=== PATIENT | male | born 1975 | race Caucasian/White ===

== ENCOUNTER → 2021-11-21 15:13 | Outpatient (BNVA) | payer MEDICARE, MEDICAID, SELFPAY | PROVIDERS: PCP Internal Medicine; Visit Provider Nurse Practitioner | DX: Z01.818 Encounter for other preprocedural examination (principal) | CPT/HCPCS: 99202 ==

== ENCOUNTER 2021-12-01 11:52 | Outpatient (REF) | payer MEDICARE, MEDICAID, SELFPAY ==
--- NOTE | ~2021-12-01 | XR_ITS ---
EXAMINATION: XR FINGER, LEFT CLINICAL INFORMATION: Autistic with pain in left fingers COMPARISON: None TECHNIQUE: 2 views of the left thumb. FINDINGS: The bones and soft tissues are unremarkable. No fracture. Alignment is anatomic. Joint spaces are maintained. XR/XR finger LT min 2V IMPRESSION: Normal finger radiographs.
== END 2021-12-01 11:53 | disposition home or self-care (01) ==
LOC: HO.HMGCX 11:52
PROVIDERS: PCP Internal Medicine; Visit Provider Internal Medicine
DX: M79.645 Pain in left finger(s) (principal); M79.89 Other specified soft tissue disorders
CPT/HCPCS: 73140

== ENCOUNTER → 2022-01-04 14:12 | Outpatient (BNVA) | payer MEDICARE, MEDICAID, SELFPAY | PROVIDERS: PCP Internal Medicine; Visit Provider Nurse Practitioner | DX: Z12.11 Encounter for screening for malignant neoplasm of colon (principal) | CPT/HCPCS: 99212 ==

== ENCOUNTER 2022-05-02 10:33 | Outpatient (REF) | payer MEDICARE, MEDICAID, SELFPAY | END 2022-05-02 10:34 | disposition home or self-care (01) | LOC: HO.SH 10:33 | PROVIDERS: Visit Provider Internal Medicine | DX: Z01.118 Encounter for examination of ears and hearing with other abnormal findings (principal); H93.293 Other abnormal auditory perceptions, bilateral | CPT/HCPCS: 92567; 92579 ==

== ENCOUNTER 2023-04-24 08:56 | Outpatient (AMB) | payer MEDICARE, MEDICAID, SELFPAY ==
--- NOTE | 2023-04-24 09:12 | AM.OFFVISNUR ---
Intake Intake Visit Reasons: Flu Shot Allergies phenobarbital [Phenobarbital] Allergy (Unknown, Verified 09/01/22 10:15) UNKNOWN phenytoin [Dilantin] Allergy (Unknown, Verified 09/01/22 10:15) Unknown From Dilantin Allergy (Unknown, Uncoded 09/01/22 10:15) UNKNOWN Office Procedures Flu Questionnaire Does the patient have a severe egg allergy?: No Does the patient have severe life threatening allergies?: No Does the patient have a fever or illness today?: No Has the patient ever had Guillain-[place] Syndrome?: No Has the patient ever had any past reaction to a flu shot?: No Immunizations flu vacc [id number] 6mos up(PF) 60 mcg(15 mcgx4)/0.5 mL IM syringe Performing Provider: Kasi Perez MD [facility] Administered by: Brit Campa RN on 04/24/23 09:12 Dose Route Admin Location Dispensed Lot Number Expiration Date NDC Torch Shearer 0.5 mL IM Right Deltoid 0.5 mL [id number] 12/16/23 [id number] VIS Given Date VIS Provided VIS Publication Date 04/24/23 Single Vaccine 21 Eligibility Eligibility Date Funding Source Not [facility] Eligible 04/24/23 Private Coding Assessment & Plan Assessment & Plan Orders: Orders Influenza [id number] Immunization Today Z23 - Encounter for immunization
== END 2023-04-24 09:15 | disposition home or self-care (01) ==
PROVIDERS: PCP Internal Medicine; Visit Provider Internal Medicine
DX: Z23 Encounter for immunization (principal)
CPT/HCPCS: 90471; 90686

== ENCOUNTER 2023-05-09 12:33 | Outpatient (RCR) | payer MEDICARE, MEDICAID, SELFPAY ==
--- NOTE | 2023-06-01 13:19 | MHC.SP.ADU ---
Referring provider: Kasi Perez MD Reason for Referral: Speech and Language Evaluation Type of Treatment: 42796 Evaluation Speech Sound Production WITH Language Date of Plan of Treatment: 05/09/23 Onset of Symptoms/Illness: 74 Date Treatment Started: 05/09/23 Medical Diagnosis: F84.0 Autism Primary Speech Language Diagnosis: F80.2 Mixed receptive-expressive language disorder History Mr. Angulo is an amiable, bilingual, autistic 47-year-old man who presented with his caregiver, Jimmy, for a language evaluation to explore Alternative and Augmentative Communication (AAC) options. Jimmy reports that Mr. Angulo understands Jamaican and Nepalese verbal communication and primarily uses gestures to express his wants and needs. Jimmy reports that he is concerned about Mr. Angulo?s communication skills because he does not always indicate when something is wrong. For example, Mr. Angulo was experiencing back pain that was not known to his caregivers until they discovered it through body checks, which have now become routine. Mr. Angulo lives in a halfway and receives assistance from caregivers to complete activities of daily living (ADLs). He visits his biological family three times per week for four hours, where Nepalese is spoken. Jimmy reports that both Mr. Angulo?s caregivers at the halfway and his family are interested in obtaining an AAC device for him. Mr. Angulo spends most days following a familiar routine and enjoys using his iPad to watch videos and play games. Jimmy reports that Mr. Angulo follows multiple-step directions (e.g. put your socks on, then put on your shoes) and responds to cloze questions (e.g. do you want to have pizza or chicken?). In addition, Mr. Angulo uses several gestures to communicate his needs, including help, more, shower, and food. To refuse an item, Mr. Angulo will push it away and to indicate needing the bathroom, he gets up from where he is sitting. Jimmy reports that Mr. Angulo experiences anxiety, especially in clinical settings like a doctor?s office, and takes fluoxetine, an antidepressant, to treat it. Mr. Angulo also has gastrointestinal difficulties and acid reflux for which he takes vitamins and a fiber supplement. Social History: Employment Status: Unemployed Current Living Situation: Senior Care Tests of Speech & Lang Adults: Clinical Impression: Impaired Observations: AAC Dynamic Assessment Mr. Angulo?s ability to communicate using a low-tech AAC device was evaluated during a dynamic assessment. Several low-tech manual AAC boards were presented to Mr. Angulo, representing TouchChat?, [id number], and clinician-made systems. Throughout the assessment, Mr. Angulo was provided with communication models from the clinician using both verbal and manual AAC modalities. While Mr. Angulo did not consistently point to the same icon as the clinician, he demonstrated adequate fine motor control to use the manual board by pointing to a variety of icons, approximately 1 inch X 1 inch, following the clinician?s model. This is a positive indicator of both Mr. Angulo?s capacity to learn and his potential to utilize AAC devices to expand his communicative ability. Receptive Communication The Receptive One-Word Picture Vocabulary Test?4 th Edition: Nepalese-Bilingual Edition (ROWPVT-4: SBE) is a standardized assessment used to evaluate receptive language skills in Nepalese-Jamaican speaking bilingual individuals aged 2;0-70+. The test measures a person?s ability to match a spoken word?in either Nepalese or Jamaican?to an image of an object, action or concept represented in a color illustration ([employer], 2013). Mr. Angulo was not responsive to the tasks of the ROWPVT-4:SBE. Testing discontinued after Mr. Angulo did not respond to multiple trials in both Jamaican and Nepalese of the four example items (hombre/man, mu?eca/doll, c?rculo/[place], excavaci?n/digging). Jimmy expressed surprise at Mr. Cernas performance and reported that at home, he consistently follows 2-step instructions, points to what he wants, and demonstrates understanding of a variety of words (e.g. colors, clothing, foods). Mr. Cernas performance on the ROWPVT-4: SBE is not likely circulation sales representative of his receptive language skills. His unresponsiveness could be due to a lack of familiarity of the task of pointing to pictures or a result of his anxiety in an unfamiliar, clinical setting with unfamiliar communication partners. Reading Mr. Cernas reading ability was probed through presentation of a picture book. He demonstrated capacity to follow the story as the clinician read aloud and accurately pointed to pictures in the book when asked by the clinician (e.g. Show me the dog). While Mr. Angulo did not exhibit reading ability, he showed good receptive language skills by pointing to the appropriate picture. This is consistent with Jimmy?s report of Mr. Angulo?s receptive language capabilities. Mr. Angulo?s responsiveness to a visual modality (i.e. book) suggests a good prognosis for his ability to communicate with AAC. Word Forming Mr. Angulo?s capacity to put letters together to form words was examined during unstructured play with Bananagrams tiles. The clinician modeled forming words by putting letter tiles together. Mr. Angulo did not form words but built structures and designs with the tiles. While this could be seen as evidence that Mr. Angulo does not have the capacity to form words, it could also be indicative of inappropriate materials (letter tiles) or setting (clinical) that were not conducive to Mr. Angulo completing this task. Impressions and Recommendations Summary: Impact on Daily Function/Activity Limitations: Daily Activities: Severe Interpersonal Interactions: Severe Education: Employment: Community: Severe Prognosis for Improvement: Good Comment: Impressions Mr. Angulo presents with a severe verbal expressive communication disorder affecting his ability to meet his wants and needs, make refusals, and interact with others. Mr. Angulo?s expressive communication challenges have a direct impact on his day-to-day life by making it difficult to indicate when he is hurt, as when he did not communicate back pain he was experiencing, and by limiting the social interactions he is able to have with others. In addition, Mr. Angulo?s limited expressive abilities prevent him from making refusals or protests, a basic human right. During this evaluation, Mr. Angulo exhibited fine motor skills and responsiveness to visual modalities, which indicate that he will respond positively to a high-tech AAC device. A comprehensive understanding of Mr. Angulo?s receptive communication abilities was not obtained due to his unresponsiveness to the standardized assessment. Recommendations It is recommended Mr. Angulo receive outpatient speech therapy for 6 weeks to address expressive communication challenges, further explore AAC modalities, and continue assessment of communicative ability. It is also recommended Mr. Angulo receive a consultation with an AAC specialist to determine his eligibility for a high-tech AAC device. Recommendation for Speech Therapy: Outpatient Speech Therapy Frequency/Duration: 1x weekly x 6 weeks Date Range for Service Requested: Time to Reassess: 3 months Restaurant Managing Partner Goals: LTG 1: Mr. Angulo will participate in diagnostic treatment to further inform therapy treatment goals. LTG 2: Mr. Angulo will demonstrate capacity to use Augmentative and Alternative Communication by using a manual board to express his wants, needs and to make refusals. Short Term Goals: Goal # : 1.1: Mr. Angulo will complete the Receptive One-Word Picture Vocabulary Test?4th Edition: Nepalese-Bilingual Edition (ROWPVT-4: SBE) to gain more information about his receptive communication skills. Goal Status: New Goal Goal# : 2.1: Mr. Angulo will make 1-word utterances to express preferences and needs by pointing to the appropriate icon in 70% of opportunities across three sessions with moderate assistance (3-4 models). Goal Status: New Goal Goal # : 2.2: Mr. Angulo will refuse an undesired activity or task by pointing to the appropriate icon in 70% of opportunities across three sessions with moderate assistance (3-4 models). Goal Status: New Goal Recommended Referrals to be Discussed with Primary Care Provider: Other: See Comment Recommended Referrals to be Discussed with Primary Care Provider: AAC Specialist Landscape And Yardwork Laborer Clinican/Clinical Fellow: Yes: Maryana Garibay Supervisory Statement: Yes Speech Language Pathologist: Jazzy Harris M.A., CCC-SHANK STITCHER
== END 2023-06-04 14:31 | disposition still patient (30) ==
LOC: HO.SH 12:33
PROVIDERS: Visit Provider Internal Medicine
DX: F84.0 Autistic disorder (principal)
CPT/HCPCS: 92523

== ENCOUNTER 2023-09-04 11:22 | Outpatient (AMB) | payer MEDICARE, MEDICAID, SELFPAY ==
--- NOTE | 2023-09-04 11:22 | MHC.PC.OV ---
Vital Signs 09/04/23 11:23 Height 5 ft 7 in Weight 176 lb BMI 27.6 BP 122/60 Blood Pressure Location Lt brachial Position Sitting Pulse 73 Pulse Source Pulse Oximeter Pulse Oximetry (%) 100 Oxygen Delivery Method Room Air Intake Visit Reasons: pe Intake Note: Patient is here today for a physical. Internal Audit Senior Manager Required: No Allergies phenobarbital [Phenobarbital] Allergy (Unknown, Verified 09/04/23 11:23) UNKNOWN phenytoin [Dilantin] Allergy (Unknown, Verified 09/04/23 11:23) Unknown From Dilantin Allergy (Unknown, Uncoded 09/04/23 11:23) UNKNOWN Medication List - Last Reconciled 09/04/23 by Kasi Perez MD acetaminophen (Tylenol) 325 mg PO QID PRN calcium carbonate (Tums Ultra) 400 mg PO DAILY 90 days cholecalciferol (vitamin D3) (Vitamin D3) 2,000 units PO QAM dextromethorphan-guaifenesin 10-200 mg (Robitussin Cough-Chest Congestion DM) 1 tab-cap PO Q8H PRN diazepam 20 mg (2 x 10 mg) PO DAILY PRN fluoxetine (Prozac) 20 mg PO DAILY lorazepam 1 mg PO One are prior to lab appointments; magnesium hydroxide (Milk of Magnesia) 2,400 mg (30 mL) PO BEDTIME PRN omeprazole 20 mg PO DAILY peg 3350-electrolytes 236-22.74-6.74 -5.86 gram (Golytely) 240 mL PO Q10M 1 day sennosides-docusate sodium 8.6-50 mg (Senna-S) 1 tab-cap PO BEDTIME [SPEECH TEACHING TABLET As directed] Tobacco use date assessed: 09/04/23 Dental Screening Dental Screen Date: 09/04/23 Did you have a dental visit in the last 12 months?: Yes Did you have a dental problem in the last 6 months where you did not have access to dental care?: No Was dental information given to patient?: Patient has dentist HPI pe HPI Details 47-year-old overweight male with autism, mental behavior problem GERD coming in for physical exam last seen in August 2022 and blood work was requested. Patient has had Cologuard test April 2022. PAtient is non verbal and advised to have a speech decive to help him express his thoughts [facility] Medical History (Updated 07/09/23 @ 13:13 by Kasi Perez MD) Constipation Lens opacity Bruxism Lumbar spondylosis GERD (gastroesophageal reflux disease) Vitamin D deficiency Autism Surgical History No pertinent past surgical history Family History Father No problems noted. Mother No problems noted. Other Mental health disorder Social History Housing: Other Housing Other:: Detention Alcohol intake: never Patient Tobacco Use Status: Never used Tobacco e-Cigarette/Vaping Use: Never Used Second Hand Smoke Exposure: No service: No Current occupational status: disabled Cognitive needs: No Hearing needs: No Vision needs: No Questionnaire PHQ-9 Over the last 2 weeks, how often have you been bothered by any of the following problems? 1. Little interest or pleasure in doing things: not at all 2. Feeling down, depressed, or hopeless: not at all 3. Trouble falling or staying asleep, or sleeping too much: not at all 4. Feeling tired or having little energy: not at all 5. Poor appetite or overeating: not at all 6. Feeling bad about yourself - or that you are a failure or have let yourself or your family down: not at all 7. Trouble concentrating on things, such as reading the newspaper or watching television: not at all 8. Moving or speaking so slowly that other people could have noticed. Or the opposite - being so fidgety or restless that you have been moving around a lot more than usual: not at all 9. Thoughts that you would be better off or of hurting yourself in some way: not at all Total score: 0 Depression Screening Interpretation: Negative Depression Screening Done: Yes Source: Developed by Drs. Fidel Shine, Eufemia Gonzalez, Fawad Montelongo and colleagues, with an educational marielena from [employer] Thrive Questionnaire Date Thrive assessed: 09/04/23 I am a: Patient What is your living situation today?: I have a steady place to live Within the past 12 months, did the food you bought not last and you didn't have the money to get more?: Never true Within the past 12 months, did you worry whether your food would run out before you got money to buy more?: Never true Do you have trouble paying for medicines?: No Do you have trouble getting transportation to medical appointments?: No Do you have trouble paying your heating and electricity bill?: No Do you have trouble taking care of your child, family member or friend?: No Do you have trouble with day-to-day activities such as bathing, preparing meals, shopping, managing finances, etc.?: No Are you currently unemployed and looking for a job?: No Are you interested in more education?: No Please select the resources that you would like help with: None THRIVE Score: 0 AUDIT C Alcohol Use Questionnaire (AUDIT-C) 1. How often do you have a drink containing alcohol?: Never 3. How often do you have six or more drinks on one occasion?: Never Total Score: 0 JAVIER-7 AMB Questionnaire JAVIER-7 Date JAVIER - 7 assessed: 09/04/23 Feeling nervous, anxious, or on edge: 0 = Not at all Not being able to stop or control worryin = Not at all Worrying too much about different things: 0 = Not at all Trouble relaxin = Not at all Being so restless that it is hard to sit still: 0 = Not at all Becoming easily annoyed or irritable: 0 = Not at all Feeling afraid as if something awful might happen: 0 = Not at all Total JAVIER-7 score (0-4 normal; 5-9 mild; 10-14 moderate; 15-21 severe): 0 Source: Developed by Drs. Fidel Shine, Eufemia Gonzalez, Fawad Montelongo and colleagues, with an educational marielena from [employer] Review of Systems Const Denies poor appetite and Denies weakness Eyes Denies no additional complaints ENT Reports Normal hearing present, Denies dizziness, Denies nasal congestion, Denies tinnitus and Denies sore throat Card Denies chest pain, Denies syncope, Denies rapid heart rate and Denies dyspnea Resp Denies cough and Denies dyspnea GI Denies change in stool character, Reports constipation, Denies diarrhea, Denies nausea and Denies vomiting Denies dysuria and Denies urinary frequency Neuro Reports Normal hearing present, Denies confusion, Denies dizziness, Denies syncope and Denies weakness Psych Denies confusion Physical exam (Primary Care) Vital Signs: Last Vital Signs Pulse 73 09/04/23 11:23 BP 122/60 09/04/23 11:23 Pulse Ox 100 09/04/23 11:23 Oxygen Delivery Method Room Air 09/04/23 11:23 BMI result Body Mass Index 27.6 Tobacco/Smoking Status: Tobacco use Status Tobacco use date assessed 09/04/23 09/04/23 11:25 Patient Tobacco Use Status Never used Tobacco 09/04/23 11:25 e-Cigarette/Vaping Use Never Used 09/04/23 11:25 PHQ-9: PHQ-9 Score PHQ-9: Total score 0 09/04/23 11:25 Depression Screening Interpretation: Negative Thrive Assessment: Date of Thrive Assessment Date Thrive assessed 09/04/23 09/04/23 11:25 Const General: No confusion Orientation/consciousness: No confusion HENMT Head: Yes normocephalic Ears: external ears normal and TM's normal bilaterally Face and sinus: Yes normal facial exam Mouth: moist mucous membranes Throat: Yes tonsils normal Eyes Conjunctivae: conjunctivae normal Pupils: Equal, round and reactive pupils present and Pupil accommodation reflex normal Direct Ophthalmoscopy: normal light reflex Neck Neck: No lymphadenopathy Thyroid: Thyroid normal Chest Chest palpation & inspection: normal inspection of the chest Resp Effort & Inspection: normal respiratory effort and no audible wheezes Auscultation: clear to auscultation bilaterally, no crackles, no wheezes and lung sounds not diminished Cardio Rate: regular rate Rhythm: regular rhythm Peripheral pulses: radial pulses present and dorsalis pedis present GI Palpation (GI): no masses Auscultation: normal bowel sounds and normoactive bowel sounds Rectal Exam - Male: Yes deferred Skin General skin exam: no rashes or lesions noted Rashes: no rashes Neuro General: No confusion Cranial nerves: Yes Equal, round and reactive pupils present and Yes Normal hearing present Cognition (Neuro): normal cognition Gait exam (Neuro): Normal gait present Motor exam (neuro): 5/5 motor strength present throughout Deep tendon reflexes (DTR's): Right brachioradialis reflex intensity grade: 2+, Left brachioradialis reflex intensity grade: 2+, Right patellar reflex intensity grade: 2+ and Left patellar reflex intensity grade: 2+ Extrem General: No edema Assessment and Plan Assessment & Plan (1) Autism: Code(s): F84.0 - Autistic disorder Plan: Continue to follow-up with psychiatry and medications. with patient non verbal, advised to have a speech device to better express himself and better communication (2) GERD (gastroesophageal reflux disease): Code(s): K21.9 - Gastro-esophageal reflux disease without esophagitis Qualifiers: Esophagitis presence: without esophagitis Qualified Code(s): K21.9 - Gastro-esophageal reflux disease without esophagitis Plan: Avoid the foods that causes that usually spicy foods, tomato products, juices, coffee, soda and foods that your sensitive to. After eating do not lie down, allow 3-4 hours before in lie down. And keep the head of bed above 30 degrees to avoid the acid from going up. (3) Overweight (BMI 25.0-29.9): Code(s): E66.3 - Overweight Plan: Diet and exercise (4) Annual physical exam: Code(s): Z00.00 - Encounter for general adult medical examination without abnormal findings Orders: Orders Complete Blood Count Auto Diff Today F84.0 - Autistic disorder Free T4 (Free Thyroxine) Today F84.0 - Autistic disorder Lipid Panel Today E78.00 - Pure hypercholesterolemia, unspecified, F84.0 - Autistic disorder Vitamin B12 and Folate Today F84.0 - Autistic disorder Comprehensive Met. Panel Today F84.0 - Autistic disorder Thyroid Stimulating Hormone Today F84.0 - Autistic disorder Coding Level of Care Code Est Pt Prev Care 40-64y([id number]) Diagnoses Autism F84.0 Gastroesophageal reflux disease without esophagitis K21.9 Esophagitis presence: without esophagitis Overweight (BMI 25.0-29.9) E66.3 Annual physical exam Z00.00
[2023-09-04 11:23] VITALS: BP 122/60; PULSE 73; O2SAT 100; BMI 27.6
== END 2023-09-04 12:39 | disposition home or self-care (01) ==
PROVIDERS: Visit Provider Internal Medicine
DX: Z00.00 Encounter for general adult medical examination without abnormal findings (principal); F84.0 Autistic disorder; K21.9 Gastro-esophageal reflux disease without esophagitis; E55.9 Vitamin D deficiency, unspecified
CPT/HCPCS: 99396

== ENCOUNTER 2023-10-15 10:00 | Outpatient (RCR) | payer MEDICARE, MEDICAID, SELFPAY ==
--- NOTE | 2023-09-07 12:27 | MHC.SPEECHCO ---
Addendum entered and electronically signed by MERARY Ngo 03/07/24 17:01: Following this note recommending a break from outpatient speech therapy on 09/07/2023, Rosendo received approval of a permanent AAC device. Rosendo was seen for 3 additional outpatient speech therapy sessions to help support this process including additional editing and communication partner education to support device use. Speech therapy was ultimately discontinued following these 3 visits due to heightened anxiety and lessened participation during speech therapy sessions. Rosendo is currently discharged from 1-1 outpatient speech therapy, but should he seek further services to support overall communication and AAC use, it is recommended for him to be re-referred. Original Note: Rosendo Angulo began 1-1 outpatient speech therapy at [facility] on 06/08/2023. During this time the Speech-Language Pathologist has worked with members of the halfway staff to create individualized lite tech augmentative and alternative communication (AAC) picture cards and communication boards. Rosendo has seen overall improvement with use of lite tech AAC picture cards and signing to support communication in the clinic. Rosendo will sign yes, no, finished, more and help. At times, he signs intermittently and other times he requires moderate visual and verbal support, such as multiple choice options or a clinician model. It is reported that he is using sign at the halfway more frequently as well. The staff is using the individualized lite tech AAC in the halfway, however Rosendo is reportedly less engaged with this than he is with sign. At this time, the Speech-Language Pathologist has submitted an application for Rosendo to obtain a high tech speech generating AAC device. He has been introduced to high tech AAC program [id number] during the past three sessions. He has demonstrated the ability to select target icons with various grid sizes, having the greatest success with 36 icons or less. He has shown the ability to select target icons with approximately 50% accuracy. Over the past few weeks Rosendo has been demonstrating heightened anxiety and less engagement in speech therapy sessions. Rosendo has been pushing away AAC icons, toys, and games almost immediately. It is recommended that Rosendo take a break from speech therapy until his AAC device is approved and arrives to allow for future speech therapy sessions to be a more functional application of communication to best support him. His current goals are included below with their current status. Goals: LTG 1: Mr. Angulo will participate in diagnostic treatment to further inform therapy treatment goals. 1.1: Mr. Angulo will complete the Receptive One-Word Picture Vocabulary Test?4th Edition: Tajik-Bilingual Edition (ROWPVT-4: SBE) to gain more information about his receptive communication skills. NOT MET LTG 2: Mr. Angulo will demonstrate capacity to use Augmentative and Alternative Communication by using a manual board to express his wants, needs and to make refusals. 2.1: Mr. Angulo will make 1-word utterances to express preferences and needs by pointing to the appropriate icon in 70% of opportunities across three sessions with moderate assistance (3-4 models). MET (lite tech AAC) 2.2: Mr. Angulo will refuse an undesired activity or task by pointing to the appropriate icon in 70% of opportunities across three sessions with moderate assistance (3-4 models). NOT MET It has been a pleasure working with Rosendo. Do not hesitate to reach out if you have any questions about Rosendo in regards to speech therapy.
--- NOTE | 2024-03-07 16:58 | MHC.SL.SOA ---
Referring Provider: Kasi Perez MD Reason for Referral: Speech and Language Evaluation Date of Plan of Treatment:05/09/23 Onset of Symptoms/Illness:73 Date Treatment Started:05/09/23 Medical Diagnosis:ASD Primary Speech Language Diagnosis:F84.0 Autistic disorder Secondary Speech Language Diagnosis:F80.2 Mixed receptive-expressive language disorder Number of Authorized Visits Remaining: Reason for Visit:04262 Individual Treatment 10/15/23 Other: Discharge Note Subjective:Mr. Angulo is an amiable, bilingual, autistic 47-year-old man who presented with his caregiver, Jimmy, for a language evaluation to explore Alternative and Augmentative Communication (AAC) options. Jimmy reports that Mr. Angulo understands Dutch and [place]an verbal communication and primarily uses gestures to express his wants and needs. Jimmy reports that he is concerned about Mr. Angulo?s communication skills because he does not always indicate when something is wrong. For example, Mr. Angulo was experiencing back pain that was not known to his caregivers until they discovered it through body checks, which have now become routine. [facility] and receives assistance from caregivers to complete activities of daily living (ADLs). He visits his biological family three times per week for four hours, where [place]an is spoken. Jimmy reports that both Mr. Angulo?s caregivers at the jail and his family are interested in obtaining an AAC device for him. Mr. Angulo spends most days following a familiar routine and enjoys using his iPad to watch videos and play games. Jimmy reports that Mr. Angulo follows multiple-step directions (e.g. put your socks on, then put on your shoes) and responds to cloze questions (e.g. do you want to have pizza or chicken?). In addition, Mr. Angulo uses several gestures to communicate his needs, including help, more, shower, and food. To refuse an item, Mr. Angulo will push it away and to indicate needing the bathroom, he gets up from where he is sitting. Jimmy reports that Mr. Angulo experiences anxiety, especially in clinical settings like a doctor?s office, and takes fluoxetine, an antidepressant, to treat it. Mr. Angulo also has gastrointestinal difficulties and acid reflux for which he takes vitamins and a fiber supplement. Kimberly arrived on time today's session accompanied by jail staff, Merissa. Objective: Today's session was focused on editing and educating staff on AAC. Assessment:[facility] staff filled out surveys on AAC knowledge, and the majority of staff appears to feel comfortable and/or have some knowledge regarding AAC. Per jail staff, Rosendo does initiate some communication via AAC. [facility] staff continues to model AAC use w/ Christine. Notes: Next session is scheduled for Sunday10/29/23 at 10am. Plan to add goals: expand expressive vocab, yes/no reliability, communicating emotions/feelings, communicate when not feeling well (i.e. head hurts), ID body parts, communicate needs (more specific?), increase spontaneity of communication, staff education on modeling and increasing spontaneous utterances. Plan: Goal # : 1.1: Mr. Angulo will complete the Receptive One-Word Picture Vocabulary Test?4th Edition: [place]an-Bilingual Edition (ROWPVT-4: SBE) to gain more information about his receptive communication skills. Status of Goal: Goal Continued Goal # : 2.1: Mr. Angulo will make 1-word utterances to express preferences and needs by pointing to the appropriate icon in 70% of opportunities across three sessions with moderate assistance (3-4 models). Status of Goal: Goal Continued Goal # : 2.2: Mr. Angulo will refuse an undesired activity or task by pointing to the appropriate icon in 70% of opportunities across three sessions with moderate assistance (3-4 models). Status of Goal: Goal Continued Goal # : Status of Goal: Seen by: Graduate/Clinical Fellow: No Supervisory Statement: f_Reg Query Last Value , MHC.AU.SIGNATUR Speech Language Pathologist: Bobbi Butt M.A., CCC-DISTRIBUTOR OF DIRECTORIES
== END 2024-03-10 10:02 | disposition home or self-care (01) ==
LOC: HO.SH 10:00
PROVIDERS: Visit Provider Internal Medicine
DX: F84.0 Autistic disorder (principal); F80.2 Mixed receptive-expressive language disorder
CPT/HCPCS: 92507

== ENCOUNTER 2024-09-08 10:45 | Outpatient (AMB) | payer MEDICARE, MEDICAID, SELFPAY ==
--- NOTE | 2024-09-08 11:19 | AM.OFFVISMDC ---
Intake Vital Signs 09/08/24 11:20 Height 5 ft 7 in Weight 184 lb BMI 28.8 BP 100/66 Blood Pressure Location Lt brachial Position Sitting Pulse 68 Pulse Source Pulse Oximeter Pulse Oximetry (%) 95 Oxygen Delivery Method Room Air Intake Visit Reasons: AWV Environmental Sampler Required: No Kindergarten Instructional Assistant: Kindergarten Instructional Assistant Present Accompanied by: program staff Allergies phenobarbital [Phenobarbital] Allergy (Unknown, Verified 09/08/24 11:29) UNKNOWN phenytoin [Dilantin] Allergy (Unknown, Verified 09/08/24 11:29) Unknown From Dilantin Allergy (Unknown, Uncoded 09/08/24 11:29) UNKNOWN Medication List - Last Reconciled 09/08/24 by Kasi Perez MD acetaminophen 325 mg PO QID PRN calcium carbonate (Tums Ultra) 400 mg PO DAILY 90 days cholecalciferol (vitamin D3) (Vitamin D3) 2,000 units PO QAM dextromethorphan-guaifenesin 10-200 mg (Robitussin Cough-Chest Congestion DM) 1 tab-cap PO Q8H PRN diazepam 20 mg (2 x 10 mg) PO DAILY PRN fluoxetine (Prozac) 20 mg PO DAILY lorazepam 1 mg PO One are prior to lab appointments; magnesium hydroxide (Milk of Magnesia) 2,400 mg (30 mL) PO BEDTIME PRN omeprazole 20 mg PO DAILY sennosides-docusate sodium 8.6-50 mg (Senna-S) 1 tab-cap PO BEDTIME [SPEECH TEACHING TABLET As directed] trazodone 50 mg PO BEDTIME PFSH Medical History (Updated 09/08/24 @ 12:16 by Kasi Perez MD) Constipation Lens opacity Bruxism Lumbar spondylosis GERD (gastroesophageal reflux disease) Vitamin D deficiency Autism Surgical History No pertinent past surgical history Family History Father No problems noted. Mother No problems noted. Other Mental health disorder Social History Housing: Other Housing Other:: Shelter Alcohol intake: never Patient Tobacco Use Status: Never used Tobacco e-Cigarette/Vaping Use: Never Used Second Hand Smoke Exposure: No service: No Current occupational status: disabled Cognitive needs: No Hearing needs: No Vision needs: No Questionnaire Medicare Wellness Checkup [age] What gender do you identify with?: male During the past 4 weeks, how much have you been bothered by emotional problems such as feeling anxious, depressed, irritable, sad or downhearted, and blue?: not at all During the past 4 weeks, has your physical & emotional health limited your social activities with family, friends, neighbors, or groups?: not at all During the past 4 weeks, how much bodily pain have you generally had?: no pain During the past 4 weeks, was someone available to help you if you needed & wanted help?: no, not at all During the past 4 weeks, what was the hardest physical activity you could do for at least 2 minutes?: very light Can you get to places out of walking distance without help? (For eg., can you travel alone on buses, taxis or drive your car?): No Can you go shopping for groceries or clothes without someone's help?: No Can you prepare your own meals?: No Can you do your housework without help?: No Because of any health problems, do you need the help of another person with your personal care needs such as eating, bathing, dressing or getting around the house?: Yes Can you handle your own money without help?: No During the past 4 weeks, how would you rate your health in general?: excellent During the past 4 weeks how have things been going for you?: very well; could hardly better Are you having difficulties driving your car?: not applicable, I don't use a car Do you always fasten your seat belt when you are in a car?: yes, usually During past 4 weeks, have you been bothered by the following: never: Falling or dizzy when standing up, Sexual problems?, Trouble eating well?, Teeth or denture problems?, Problems using the telephone? and Tiredness or fatigue? Have you fallen 2 or more times in the past year?: No Are you afraid of falling?: No Are you a smoker?: no During the past 4 weeks, how many drinks of wine, beer, or other alcoholic beverages did you have?: no alcohol at all Do you exercise for about 20 minutes 3 or more times a week?: yes, some of the time Have you been given information to help with the following?: yes: Hazards in your house that might hurt you? and yes: Keeping track of your medications? How often do you have trouble taking medicines the way you have been told to take them?: I always take medicine as prescribed How confident are you that you can control & manage most of your health problems?: very confident (Program take care of pt health problems.) What is your race?: or origin or descent Review of Systems Const Denies poor appetite and Denies weakness Eyes Denies no additional complaints ENT Reports Normal hearing present, Denies dizziness, Denies nasal congestion, Denies tinnitus and Denies sore throat Card Denies chest pain, Denies syncope, Denies rapid heart rate and Denies dyspnea Resp Denies cough and Denies dyspnea GI Denies change in stool character, Reports constipation, Denies diarrhea, Denies nausea and Denies vomiting Denies dysuria and Denies urinary frequency Neuro Reports Normal hearing present, Denies confusion, Denies dizziness, Denies syncope and Denies weakness Psych Denies confusion Physical Exam Vital Signs: Last Vital Signs Pulse 68 09/08/24 11:20 BP 100/66 09/08/24 11:20 Pulse Ox 95 09/08/24 11:20 Oxygen Delivery Method Room Air 09/08/24 11:20 BMI result Body Mass Index 28.8 Const General: No confusion Orientation/consciousness: No confusion HEENT Head: Yes normocephalic Ears: external ears normal and TM's normal bilaterally Face and sinus: Yes normal facial exam Mouth: moist mucous membranes Throat: Yes tonsils normal Eyes Conjunctivae: conjunctivae normal Pupils: Equal, round and reactive pupils present and Pupil accommodation reflex normal Direct Ophthalmoscopy: normal light reflex Neck Neck: No lymphadenopathy Thyroid: Thyroid normal Chest Chest palpation & inspection: normal inspection of the chest Resp Effort & Inspection: normal respiratory effort and no audible wheezes Auscultation: clear to auscultation bilaterally, no crackles, no wheezes and lung sounds not diminished Cardio Rate: regular rate Rhythm: regular rhythm Peripheral pulses: radial pulses present and dorsalis pedis present GI Palpation (GI): no masses Auscultation: normal bowel sounds and normoactive bowel sounds Rectal Exam - Male: Yes deferred Skin General skin exam: no rashes or lesions noted Rashes: no rashes Neuro General: No confusion Cranial nerves: Yes Equal, round and reactive pupils present and Yes Normal hearing present Cognition (Neuro): normal cognition Gait exam (Neuro): Normal gait present Motor exam (neuro): 5/5 motor strength present throughout Deep tendon reflexes (DTR's): Right brachioradialis reflex intensity grade: 2+, Left brachioradialis reflex intensity grade: 2+, Right patellar reflex intensity grade: 2+ and Left patellar reflex intensity grade: 2+ Extrem General: No edema Assessment & Plan Assessment & Plan (1) Medicare annual wellness visit, subsequent: Code(s): Z00.00 - Encounter for general adult medical examination without abnormal findings (2) Overweight (BMI 25.0-29.9): Code(s): E66.3 - Overweight Plan: Noted 8 lb weight gain . Diet and exercise (3) Autism: Code(s): F84.0 - Autistic disorder Plan: Continue with present medication (4) GERD (gastroesophageal reflux disease): Code(s): K21.9 - Gastro-esophageal reflux disease without esophagitis Qualifiers: Esophagitis presence: without esophagitis Qualified Code(s): K21.9 - Gastro-esophageal reflux disease without esophagitis Plan: Avoid the foods that causes that usually spicy foods, tomato products, juices, coffee, soda and foods that your sensitive to. After eating do not lie down, allow 3-4 hours before in lie down. And keep the head of bed above 30 degrees to avoid the acid from going up. Plan History of Present Illness The patient is a 48-year-old male presenting for an annual well visit. He has autism spectrum disorder and gastroesophageal reflux disease (GERD). Since his last appointment in August 2023, regular blood tests have not been performed yet require scheduling, with proper fasting recommended. The patient has noted an 8-pound weight gain since his last check-in. His blood pressure remains stable though, which is reassuring. A flu vaccination is the only pending immunization, typically administered in March. His tetanus vaccination is current. Discussions ensued regarding maintaining a healthy lifestyle encompassing diet, hydration, and physical activity. Health Maintenance - Annual well visit was conducted. - Patient was advised to schedule fasting blood work at the hospital. - Discussed importance and scheduled flu vaccination for March as it was missed this season. - Confirmed tetanus vaccination is up to date. - Reinforced lifestyle modifications to address overweight status (encouraging physical activity, healthy eating, increased water intake). Social History - Patient engages in regular physical activity, often walking around the park. - Noted increase in food intake potentially contributing to recent weight gain. Review of Systems Results Plan During this visit, the primary focus was on managing the patient's autism spectrum disorder, GERD, and recent weight gain. Blood work will be scheduled to monitor his overall health status, with instructions for fasting provided. Encouragement was given to enhance his lifestyle by incorporating physical activity and healthy eating habits. Attention was brought to his missed flu shot; a plan is in place to administer it in March, as the next flu season approaches. His tetanus vaccination is current, confirming that he is broadly up to date on this preventive measure. Patient was informed and verbally consented to the use of an ambient scribe for clinic note documentation during this visit. Discussion Notes I discussed the patient's overall well-being and addressed his autism and GERD, focusing on scheduled preventive care measures like blood work and flu vaccination. His current tetanus immunization status was checked and found to be current. We explored strategies to address weight gain, emphasizing the importance of physical activity and a balanced diet. For vaccination, I advised a flu shot in March due to the seasonal timeline. Throughout the visit, I ensured that all instructions and rationales for preventive actions were clear and comprehensible, reinforcing the prioritization of health maintenance and disease prevention strategies. Patient Instructions - Schedule and complete blood work at the hospital, ensuring to fast as instructed. - Continue to incorporate regular physical activity like park walks into daily routine. - Focus on healthy eating habits, increase hydration, and limit excess food intake. - Plan to receive a flu vaccination in March. - Report any significant health changes before the next appointment. Orders: Orders Complete Blood Count Auto Diff Today F84.0 - Autistic disorder Free T4 (Free Thyroxine) Today F84.0 - Autistic disorder Vitamin B12 and Folate Today F84.0 - Autistic disorder Lipid Panel Today E78.00 - Pure hypercholesterolemia, unspecified, F84.0 - Autistic disorder Comprehensive Met. Panel Today F84.0 - Autistic disorder Thyroid Stimulating Hormone Today F84.0 - Autistic disorder Coding Level of Care Code Medicare Subsequent (G0439) Diagnoses Medicare annual wellness visit, subsequent Z00.00 Overweight (BMI 25.0-29.9) E66.3 Autism F84.0 Gastroesophageal reflux disease without esophagitis K21.9 Esophagitis presence: without esophagitis
[2024-09-08 11:20] VITALS: BP 100/66; PULSE 68; O2SAT 95; BMI 28.8
== END 2024-09-08 12:32 | disposition home or self-care (01) ==
LOC: HO.HMCH 10:45
PROVIDERS: PCP Internal Medicine; Visit Provider Internal Medicine
DX: Z00.00 Encounter for general adult medical examination without abnormal findings (principal); E66.3 Overweight; Z68.28 Body mass index [BMI] 28.0-28.9, adult; F84.0 Autistic disorder; K21.9 Gastro-esophageal reflux disease without esophagitis

== ENCOUNTER 2025-03-20 14:09 | Outpatient (AMB) | payer MEDICARE, MEDICAID, SELFPAY ==
[2025-03-20 14:19] VITALS: BP 124/70; PULSE 77; O2SAT 98; BMI 29.1
--- NOTE | 2025-03-20 14:19 | A.OFFPC_ITS ---
Vital Signs 03/20/25 14:19 Height 5 ft 7 in Weight 186 lb BMI 29.1 BP 124/70 Blood Pressure Location Lt brachial Position Sitting Pulse 77 Pulse Source Pulse Oximeter Pulse Oximetry (%) 98 Oxygen Delivery Method Room Air Intake Visit Reasons: follow up Allergies phenobarbital (Phenobarbital) Allergy (Unknown, Verified 03/20/25 14:19) UNKNOWN phenytoin (Dilantin) Allergy (Unknown, Verified 03/20/25 14:19) Unknown From Dilantin Allergy (Unknown, Uncoded 03/20/25 14:19) UNKNOWN Tobacco use date assessed: 03/20/25 Dental Screening Dental Screen Date: 03/20/25 Did you have a dental visit in the last 12 months?: Yes Did you have a dental problem in the last 6 months where you did not have access to dental care?: No Was dental information given to patient?: Patient has dentist [facility] Medical History (Updated 09/08/24 @ 12:16 by Kasi Perez MD) Constipation Lens opacity Bruxism Lumbar spondylosis GERD (gastroesophageal reflux disease) Vitamin D deficiency Autism Surgical History No pertinent past surgical history Family History Father No problems noted. Mother No problems noted. Other Mental health disorder Social History Housing: Other Housing Other:: Care Home Alcohol intake: never Patient Tobacco Use Status: Never used Tobacco Tobacco use type: Cigarette e-Cigarette/Vaping Use: Never Used Second Hand Smoke Exposure: No service: No Current occupational status: disabled Cognitive needs: No Hearing needs: No Vision needs: No Questionnaire PHQ-9 Over the last 2 weeks, how often have you been bothered by any of the following problems? 1. Little interest or pleasure in doing things: not at all 2. Feeling down, depressed, or hopeless: not at all 3. Trouble falling or staying asleep, or sleeping too much: not at all 4. Feeling tired or having little energy: not at all 5. Poor appetite or overeating: not at all 6. Feeling bad about yourself - or that you are a failure or have let yourself or your family down: not at all 7. Trouble concentrating on things, such as reading the newspaper or watching television: not at all 8. Moving or speaking so slowly that other people could have noticed. Or the opposite - being so fidgety or restless that you have been moving around a lot more than usual: not at all 9. Thoughts that you would be better off or of hurting yourself in some way : not at all Total score: 0 Depression Screening Interpretation: Negative Depression Screening Done: Yes Source: Developed by Drs. Fidel Shine, Eufemia Gonzalez, Fawad Montelongo and colleagues, with an educational marielena from [employer]. Thrive Questionnaire Date Thrive assessed: 03/20/25 I am a: Parent/Caregiver What is your living situation today?: I have a steady place to live Within the past 12 months, did the food you bought not last and you didn't have the money to get more?: Never true Within the past 12 months, did you worry whether your food would run out before you got money to buy more?: Never true Do you have trouble paying for medicines?: No Do you have trouble getting transportation to medical appointments?: No Do you have trouble paying your heating and electricity bill?: No Do you have trouble taking care of your child, family member or friend?: No Do you have trouble with day-to-day activities such as bathing, preparing meals, shopping, managing finances, etc.?: No Are you currently unemployed and looking for a job?: No Are you interested in more education?: No Please select the resources that you would like help with: None Currently or been in a relationship where the following occur: No concerns reported THRIVE Score: 0 AUDIT C Alcohol Use Questionnaire (AUDIT-C) 1. How often do you have a drink containing alcohol?: Never 3. How often do you have six or more drinks on one occasion?: Never Total Score: 0 JAVIER-7 AMB Questionnaire JAVIER-7 Date JAVIER - 7 assessed: 03/20/25 Feeling nervous, anxious, or on edge: 0 = Not at all Not being able to stop or control worryin = Not at all Worrying too much about different things: 0 = Not at all Trouble relaxin = Not at all Being so restless that it is hard to sit still: 0 = Not at all Becoming easily annoyed or irritable: 0 = Not at all Feeling afraid as if something awful might happen: 0 = Not at all Total JAVIER-7 score (0-4 normal; 5-9 mild; 10-14 moderate; 15-21 severe): 0 Source: Developed by Drs. Fidel Shine, Eufemia Gonzalez, Fawad Montelongo and colleagues, with an educational marielena from [employer]. Physical exam (Primary Care) Vital Signs: Last Vital Signs Pulse 77 03/20/25 14:19 BP 124/70 03/20/25 14:19 Pulse Ox 98 03/20/25 14:19 Oxygen Delivery Method Room Air 03/20/25 14:19 BMI result Body Mass Index 29.1 Tobacco/Smoking Status: Tobacco use Status Tobacco use date assessed 03/20/25 03/20/25 14:26 Patient Tobacco Use Status Never used Tobacco 03/20/25 14:26 Tobacco use type Cigarette 03/20/25 14:26 e-Cigarette/Vaping Use Never Used 03/20/25 14:26 PHQ-9: PHQ-9 Score PHQ-9: Total score 0 03/20/25 14:52 Depression Screening Interpretation: Negative Thrive Assessment: Date of Thrive Assessment Date Thrive assessed 03/20/25 03/20/25 14:26 Currently or been in a relationship where the following occur: No concerns reported Const General: alert; No acute distress Eyes Conjunctivae: conjunctivae normal Resp Auscultation: clear to auscultation bilaterally Cardio Rate: regular rate Rhythm: regular rhythm GI Inspection: Yes normal to inspection Extrem General: Yes normal to inspection and No edema Coding Level of Care Code Est Pt Level 4 (27729) Complex EM visit Add On G2211 Diagnoses Autism F84.0 Colon cancer screening Z12.11 Gastroesophageal reflux disease without esophagitis K21.9 Esophagitis presence: without esophagitis Overweight (BMI 25.0-29.9) E66.3 Assessment & Plan Assessment & Plan (1) Autism: Code(s): F84.0 - Autistic disorder Category: Medical Plan: Continue to follow-up with psychiatry (2) Colon cancer screening: Code(s): Z12.11 - Encounter for screening for malignant neoplasm of colon Category: Medical Plan: Discussed about colon cancer screening for another Cologuard test (3) GERD (gastroesophageal reflux disease): Code(s): K21.9 - Gastro-esophageal reflux disease without esophagitis Category: Medical Qualifiers: Esophagitis presence: without esophagitis Qualified Code(s): K21.9 - Gastro-esophageal reflux disease without esophagitis Plan: Avoid the foods that causes that usually spicy foods, tomato products, juices, coffee, soda and foods that your sensitive to. After eating do not lie down, allow 3-4 hours before in lie down. And keep the head of bed above 30 degrees to avoid the acid from going up. (4) Overweight (BMI 25.0-29.9): Code(s): E66.3 - Overweight Category: Medical Plan: Diet and exercise Plan History of Present Illness The patient is a 49-year-old male presenting for a follow-up visit. The patient has a history of Autism Spectrum Disorder, which affects his behavior and communication. He continues to follow up with psychiatry for management of his condition. The patient also has a history of Gastroesophageal Reflux Disease (GERD), which is managed with dietary modifications and medication. There is a plan to continue monitoring his diet and exercise to manage his symptoms. Constipation is another ongoing issue for the patient, which is being monitored and managed as part of his overall care. Preventative care measures include colon cancer screening, with a Cologuard test performed in April 2022 and a follow-up test planned. Health Maintenance - Colon cancer screening with Cologuard test performed in April 2022, follow- up planned - Advised flu shot and COVID-19 vaccination Social History - Exercise: Patient walks regularly - Nutrition: Monitored diet with emphasis on reducing rice intake Review of Systems - Neurological: Reports stable walking, denies recent falls Physical Exam - Cardiovascular: Heart sounds auscultated, no abnormalities noted - Respiratory: Lung sounds auscultated, no abnormalities noted Results - Tests: Cologuard test performed in April 2022 Plan Patient was informed and verbally consented to the use of an ambient scribe for clinic note documentation during this visit. 1. Autism Spectrum Disorder The patient continues to follow up with psychiatry for management of Autism Spectrum Disorder. 2. Gastroesophageal Reflux Disease (Gerd) The management plan includes dietary modifications and monitoring of symptoms. 3. Constipation Constipation is being monitored and managed as part of the patient's overall care. 4. Preventative Care: Colon Cancer Screening With Stool Test A follow-up Cologuard test is planned as part of the patient's preventative care measures. Discussion Notes During the visit, we discussed the importance of continuing psychiatric follow- up for Autism Spectrum Disorder and the management of GERD through dietary modifications. We also emphasized the need for regular colon cancer screening and advised on flu and COVID-19 vaccinations. Patient Instructions - Continue psychiatric follow-up for Autism Spectrum Disorder. - Follow dietary recommendations to manage GERD. - Schedule and complete the follow-up Cologuard test. - Obtain flu and COVID-19 vaccinations as advised. Orders: Referrals Cologuard Test Z12.11 - Encounter for screening for malignant neoplasm of colon
== END 2025-03-20 16:14 | disposition home or self-care (01) ==
LOC: HO.HMCH 14:10
PROVIDERS: PCP Internal Medicine; Visit Provider Internal Medicine
DX: F84.0 Autistic disorder (principal); Z12.11 Encounter for screening for malignant neoplasm of colon; K21.9 Gastro-esophageal reflux disease without esophagitis; E66.3 Overweight

== ENCOUNTER → 2025-03-20 14:09 | Outpatient (BNVA) | payer MEDICARE, MEDICAID, SELFPAY | PROVIDERS: PCP Internal Medicine; Visit Provider Internal Medicine | DX: F84.0 Autistic disorder (principal); K21.9 Gastro-esophageal reflux disease without esophagitis; E66.3 Overweight; K59.00 Constipation, unspecified; Z68.29 Body mass index [BMI] 29.0-29.9, adult | CPT/HCPCS: 96127; 99212 ==